=== PATIENT | female | born 1985 | race Caucasian/White ===

== ENCOUNTER 2021-10-23 10:44 | Emergency (ER) | payer OTHER ==
[2021-10-23 11:00] VITALS: BP 142/83; PULSE 74; TEMP 98; BMI 47.2
[2021-10-23] MEDS ORDERED: KETOROLAC TROMETHAMINE 60 MG/2 ML VIAL IM ONE (13:06)
[2021-10-23] MEDS ORDERED: KETOROLAC TROMETHAMINE 60 MG/2 ML VIAL ONE (13:08)
[2021-10-23 13:24] LABS: EPI CELLS 27 /uL (0-25.1); HYALINE CASTS 2 /uL (0-3.1); URINE APPEARANCE CLEAR; URINE BACTERIA 1212 /uL (0-1359); URINE BILIRUBIN NEGATIVE (NEGATIVE); URINE COLOR YELLOW; URINE GLUCOSE (UA) NEGATIVE (NEGATIVE); URINE KETONE NEGATIVE (NEGATIVE); URINE LEUK ESTERASE 2+ (NEGATIVE); URINE NITRITE NEGATIVE (NEGATIVE); URINE PROTEIN NEGATIVE (NEGATIVE); URINE RBC 4 /uL (0-23.9); URINE UROBILINOGEN 0.2 mg/dL (0.2-1.0); URINE WBC 246 /uL (0-25.8)
[2021-10-23 13:25] LABS: HCG,QUALITATIVE URINE Negative
== END 2021-10-23 14:38 | disposition home or self-care (01) ==
LOC: JER 10:44 → JERFT 10:44
PROC: 3E0233Z Introduction of Anti-inflammatory into Muscle, Percutaneous Approach (ICD-10-PCS; principal; 2021-10-23)
DX: M54.50 Low back pain, unspecified (principal)
CPT/HCPCS: 81003; 84703; 87086; 96372; 99284-25

== ENCOUNTER 2024-08-04 17:28 | Emergency (ER) | payer OTHER ==
[2024-08-04 17:41] VITALS: RESP 18; TEMP 98.5; BMI 34.7
[2024-08-04] MEDS ORDERED: ACETAMINOPHEN INJECTION 100 ML ONE (18:37)
[2024-08-04] MEDS: ACETAMINOPHEN 1000 MG/100 ML BAG IVPB ONE (18:54)
[2024-08-04 18:59] LABS: BASO % 0.6 % (0-2.0); EOS % 1.2 % (0-4.5); HEMATOCRIT 42.7 % (32.4-45.2); HEMOGLOBIN 14.4 GM/dL (10.7-15.3); LYMPH % 23.1 % (8-40); MCH 28.4 pg (25.7-33.7); MCHC 33.8 g/dl (32.0-36.0); MEAN CELL VOLUME 83.9 fl (80-96); MEAN PLT VOLUME 9.7 fl (7.5-11.1); NEUT % 71.1 % (42.8-82.8); PLATELET COUNT 330 10^3/uL (134-434); RBC 5.09 M/mm3 (3.60-5.2); RDW 13.4 % (11.6-15.6); WHITE BLOOD COUNT 11.2 K/mm3 (4.0-10.0)
[2024-08-04 19:18] VITALS: BP 182/120; PULSE 90
[2024-08-04 19:19] LABS: POTASSIUM 3.9 mmol/L (3.5-5.1)
[2024-08-04 19:21] LABS: CALCIUM 10.4 mg/dL (8.5-10.1)
[2024-08-04 19:22] LABS: ALBUMIN 4.2 g/dl (3.4-5.0); BLOOD UREA NITROGEN 12.6 mg/dL (7-18); MAGNESIUM 2.3 mg/dL (1.8-2.4)
[2024-08-04 19:25] LABS: CREATININE 0.7 mg/dL (0.55-1.3)
[2024-08-04 19:26] LABS: BILIRUBIN,TOTAL 0.4 mg/dL (0.2-1); TOT PROT 8.3 g/dl (6.4-8.2)
== END 2024-08-04 20:34 | disposition home or self-care (01) ==
LOC: JER 17:28
PROC: 3E033NZ Introduction of Analgesics, Hypnotics, Sedatives into Peripheral Vein, Percutaneous Approach (ICD-10-PCS; principal; 2024-08-04)
DX: R07.89 Other chest pain (principal); R51.9 Headache, unspecified; R00.2 Palpitations; T22.111A Burn of first degree of right forearm, initial encounter; Z20.822 Contact with and (suspected) exposure to COVID-19
CPT/HCPCS: 0241U-QW; 36415; 71046-TC-FY; 80053; 83735; 84439; 84443; 84484; 84703; 85025; 93005; 93010; 99285-25; J0131